=== PATIENT | female | born 1980 | race Caucasian/White ===

== ENCOUNTER 2016-06-24 18:19 | Inpatient (IN) | payer OTHER ==
--- NOTE | ~2016-06-24 | DS ---
Unit #: [id number] #: [id number] Patient: DAWIT RABAGO [id number] [facility] [address] [place] [address] [id number] I MR#: [id number] NAME: DAWIT RABAGO ROOM: [facility] Age: 35 Sex: F Admission Date: 06/24/2016 : 1980 Discharge Date: 06/26/2016 Attending Physician: Quentin Queen M.D. Primary Care Physician: Primary Care Physician No DISCHARGE SUMMARY REASON FOR ADMISSION The patient is a 19-year-old white female, admitted from [facility] with a history of methamphetamine and heroin use. HOSPITAL COURSE The patient was admitted to the [facility] unit and placed on routine detoxification protocol for opioids. She was begun on a 7-day course of Cleocin to address areas of excoriation on her scalp related to her methamphetamine habit. No other medications were undertaken. By 06/26/2016, the patient was in bright spirits and requested discharge citing a plan to restart participation in Narcotics Anonymous in [place]. As per her request, discharge was ordered. FINAL DIAGNOSES Methamphetamine use disorder, opioid use disorder. DISPOSITION ON DISCHARGE The patient is discharged on the following medications; Cleocin 300 mg t.i.d. x7 days for areas of skin excoriation on scalp. DISCHARGE INSTRUCTIONS No dietary or physical exertions were placed on the patient at the time of discharge. FOLLOWUP Followup will take place through the auspices of community mental health resources in the [place], [place] area. PROGNOSIS The patient's prognosis is considered fair. Dictated by... Quentin Queen M.D. TIGIST/brad TD: 06/27/2016 01:05 JOB #: [id number] Unit #: [id number] #: [id number] Patient: DAWIT RABAGO DISCHARGE SUMMARY Page 1 of 1 X Quentin Queen MD X DISCHARGE SUMMARY
--- NOTE | ~2016-06-24 | PA ---
Unit #: [id number] #: [id number] Patient: DAWIT RABAGO [id number] [facility] [address] [place] [address] [id number] MR#: [id number] NAME: DAWIT RABAGO ROOM: [facility] Age: 35 Sex: F Admission Date: 06/24/2016 : 1980 Date of Assessment: 06/25/2016 Attending Physician: Quentin Queen M.D. Admitting Physician: Quentin Queen M.D. Primary Care Physician: Primary Care Physician No PSYCHIATRIC ASSESSMENT IDENTIFYING INFORMATION The patient is a 35-year-old white female admitted from the [facility] with a history of increasing methamphetamine and heroin use. INFORMANT(S) Chart, patient cannot be aroused for interview. CHIEF COMPLAINT None given. HISTORY OF PRESENT ILLNESS The patient is a 35-year-old white female with a lengthy history of intravenous heroin and methamphetamine use. The patient is hepatitis C positive. According to the chart, the patient has been in outpatient treatment in the past and has been diagnosed with attention deficit disorder and bipolar disorder but at this time the patient is on no prescribed psychotropic medications. The patient had presented stating that she hopes to stop using heroin and methamphetamine but has been unable to make it through withdrawal and home. When seen today, the patient is sleeping soundly and cannot be aroused for further interview. PAST PSYCHIATRIC HISTORY As above. FAMILY HISTORY Noncontributory. SOCIAL HISTORY The patient works at a [employer] in [place], [place]. MEDICAL HISTORY Noncontributory. MEDICATION HISTORY None. ALLERGIES Flagyl. MENTAL STATUS EXAM At this time, reveals the patient to be a soundly sleeping white female. Multiple attempts to arouse her are unsuccessful. Unit #: [id number] #: [id number] Patient: DAWIT RABAGO ASSETS AND LIABILITIES Patient's assets supportive family and friends. Liabilities, none noted. ADMITTING DIAGNOSES 1. Methamphetamine use disorder. 2. Opioid use disorder. 3. Bipolar disorder by history. PSYCHIATRIC PLAN/TREATMENT GOALS The patient remains hospitalized for safety and stabilization. Routine detoxification protocol for opioids has been initiated. The patient will participate in appropriate bacon and milieu activities. DISCHARGE PLANNING We will discuss with patient once she is able to participate in interview possible post discharge treatment options. ESTIMATED LENGTH OF STAY Five to seven days. Dictated by... Quentin Queen M.D. CB/enma TD: 06/25/2016 15:28 JOB #: [id number] PSYCHIATRIC ASSESSMENT Page 1 of 1 X Quentin Queen MD X PSYCHIATRIC ASSESSMENT
--- NOTE | ~2016-06-24 | HP ---
Unit #: [id number] #: [id number] Patient: DAWIT RABAGO [id number] [place] [address] [id number] I MR#: [id number] NAME: DAWIT RABAGO ROOM: [facility] Age: 35 Sex: F Admission Date: 06/24/2016 : 1980 Attending Physician: Quentin Queen M.D. Admitting Physician: Quentin Queen M.D. Primary Care Physician: Primary Care Physician No HISTORY AND PHYSICAL HISTORY OF PRESENT ILLNESS Dawit is a 35-year-old female admitted to [facility] because of her polysubstance abuse which includes IV methamphetamine and IV heroin. PAST MEDICAL HISTORY 1. Long history of poly illicit substance abuse to include IV drugs. 2. Hepatitis C. PAST SURGICAL HISTORY T & A ALLERGIES No known drug allergies. SOCIAL HISTORY Smokes one pack per day. Denies alcohol. Admits to a long history of poly illicit substance abuse to include IV heroin and methamphetamine. FAMILY HISTORY Medically noncontributory. REVIEW OF SYSTEMS CONSTITUTIONAL: No fever or chills. HEENT: Denies any sore throat, ear pain or runny nose. CARDIOVASCULAR: Denies chest pain, irregular heart rhythm or palpitations. CHEST: Denies shortness of breath or cough. No hemoptysis. GASTROINTESTINAL: Denies nausea, vomiting, diarrhea or chronic constipation. ENDOCRINE: Denies history of increased thirst or urination. No recent significant weight loss or gain. GENITOURINARY: Denies dysuria, frequency, or hematuria. SKIN: Denies any rashes. HEMATOLOGIC: Denies history of increased bleeding or bruising. MUSCULOSKELETAL: Denies any hot, swollen joints. No generalized muscle pain. NEUROLOGIC: Denies problems with vision or speech. No frequent, severe headaches. No numbness, tingling or weakness in any extremities. Denies loss of bladder or bowel control. CURRENT MEDICATIONS Detox protocol Unit #: [id number] #: [id number] Patient: DAWIT RABAGO PHYSICAL EXAMINATION GENERAL: Alert, well-nourished, in no apparent distress. VITAL SIGNS: Blood pressure 100/58, heart rate 80, respirations 16, temperature 98.6. WEIGHT: 175 pounds. HEIGHT: 5'7". SKIN: Warm and dry without rash. She has multiple sores along her scalp. HEENT: Normocephalic. TMs not viewed. Oral and nasal passages clear. Conjunctivae clear. Pupils equal, round and reactive to light and accommodation. Extraocular movements intact. NECK: Supple without thyromegaly. Positive lymph nodes along the posterior chain. HEART: Regular rate and rhythm without murmur. LUNGS: Clear. ABDOMEN: Soft, nontender. : Not done. EXTREMITIES: No evidence of cyanosis, clubbing or edema. Moves all extremities without focal deficit. NEUROLOGICAL: Grossly within normal limits. Cranial Nerves: II: Visual monroy are intact. III, IV AND : Extraocular movements are intact. Pupils are equal, round and reactive to light. V: Facial sensation is grossly normal. VII: Facial movements and expression are normal. VIII: Auditory acuity grossly intact. IX, X: Uvula is midline. Phonation is normal. XI: Patient shrugs shoulders and turns head normally. XII: Tongue protrudes in the midline. Sensory and Motor Function: Sensory and motor sensation is grossly normal. Motor: moves all extremities well. Coordination: Gait is normal. Deep Tendon Reflexes: Intact. IMPRESSION 1. Psychiatric admission 2. Multiple sores on her scalp associated with positive lymph nodes RECOMMENDATIONS PSYCHIATRIC: Per psychiatrist. MEDICAL: 1. I see no contraindications to participating in facility's activities. 2. Cleocin 300 mg 1 p.o. t.i.d. times 7 days. MEDICAL PROGNOSIS Good. MEDICAL CONDITION Stable. Dictated by... Patti Pardo P.A.-C. for Manav Jason/fannie TD: 06/26/2016 00:52 Unit #: [id number] #: [id number] Patient: DAWIT RABAGO JOB #: [id number] HISTORY AND PHYSICAL Page 1 of 1 X Patti Pardo HISTORY AND PHYSICAL
== END 2016-06-26 16:20 | disposition home or self-care (01) | DRG 897 ==
LOC: P1E 21:01
PROC: HZ2ZZZZ Detoxification Services for Substance Abuse Treatment (ICD-10-PCS; principal; 2016-06-24)
DX: F15.20 Other stimulant dependence, uncomplicated (principal); F11.20 Opioid dependence, uncomplicated; F31.9 Bipolar disorder, unspecified; F17.210 Nicotine dependence, cigarettes, uncomplicated
CPT/HCPCS: 86592